=== PATIENT | female | born 1990 | race Asian ===

== ENCOUNTER 2019-05-23 21:54 | Emergency (ER) | payer OTHER ==
[2019-05-23 22:04] VITALS: BP 130/87
[2019-05-23] MEDS ORDERED: Aspirin TAB* 325 MG PO ONE (22:08)
[2019-05-23] MEDS ORDERED: Aspirin 81 mg CHEW TAB* 81 MG TAB.CHEW PO ONE (22:08)
--- NOTE | 2019-05-23 22:18 | UC ---
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 About an hour ago, she developed left chest pain under the left breast without radiation, associated with mild nausea, but no shortness of breath. She comes today because this is the longest duration of pain, but she has been having pain post exercise for the past several months. Aware of an atrial arrhythmia on physical about a year ago, without work up at that time. Over the past months, she has been monitorong EKG's with an brad, with ST elevations noted in the report, but no action was taken. - History of Current Complaint Stated Complaint: CHEST PAIN Time Seen by Provider: 05/23/19 21:55 Hx Obtained From: Patient Hx Last Menstrual Period: 2 weeks ago Onset/Duration: Sudden Onset, Lasting Minutes - about 50 to 60 Timing: Constant - some fluctuation in intensity. 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 TAD Risk Factors: Negative - Allergy/Home Medications Allergies/Adverse Reactions: Allergies Allergy/AdvReac Type Severity Reaction Status Date / Time No Known Allergies Allergy Verified 05/23/19 22:04 Home Medications: Home Medications NK [No Home Medications Reported] 05/23/19 [History Confirmed 05/23/19] PMH/Surg Hx/FS Hx/Imm Hx Previously Healthy: Yes - Surgical History Surgical History: Yes Surgery Procedure, Year, and Place: right breast cyst removal - Family History Known Family History: Positive: None - parents living and healthy Negative: Cardiac Disease, Hypertension - Social History Occupation: Student Alcohol Use: None Substance Use Type: None Smoking Status (MU): Never Smoked Tobacco Review of Systems All Other Systems Reviewed And Are Negative: Yes Constitutional: Positive: Negative Skin: Positive: Negative Eyes: Positive: Negative ENT: Positive: Negative Respiratory: Positive: Negative. Negative: Shortness Of Breath, Cough Cardiovascular: Positive: Palpitations, Chest Pain Gastrointestinal: Positive: Nausea. Negative: Vomiting Genitourinary: Positive: Negative Motor: Positive: Negative Neurovascular: Positive: Negative Musculoskeletal: Positive: Negative Neurological: Positive: Negative Psychological: Positive: Negative Is Patient Immunocompromised?: No Physical Exam Triage Information Reviewed: Yes Appearance: Well-Appearing, Pain Distress - mild Vital Signs: Initial Vital Signs Temp 97.7 F 05/23/19 21:59 Pulse 72 05/23/19 21:59 Resp 16 05/23/19 21:59 BP 130/87 05/23/19 21:59 Pulse Ox 100 05/23/19 21:59 Eye Exam: Normal ENT: Positive: Pharynx normal Dental Exam: Normal Neck: Positive: Supple, Nontender, No Lymphadenopathy Respiratory: Positive: Lungs clear, Normal breath sounds, No respiratory distress Cardiovascular: Positive: RRR, No Murmur Abdomen Description: Positive: Nontender, No Organomegaly, Soft Musculoskeletal Exam: Normal Musculoskeletal: Positive: Strength Intact Neurological Exam: Normal Neurological: Positive: Alert, Muscle Tone Normal Psychological Exam: Normal Skin Exam: Normal Diagnostics - EKG Cardiac Rate: NL Cardiac Rhythm: Sinus: Normal Ectopy: None ST Segment: Other Summary of EKG Findings: Sinus rhythm, rate 71, with delta waves and ST segment depressions of 1 -2mm in leads II, III aVF, with additional depressions in anterior leads. - Assessment/Plan Course Of Treatment: 324mg of aspirin given with decision [place] [facility] [place] work up given changes in EKG. - Differential Diagnoses - Chest Pain Differential Diagnosis/HQI/PQRI: Acute [place], ACS, Other: - arrhymthmia - Clinical Impression Provider Diagnosis: Chest pain - Physician Notifications Discussed Patient Care With: Dr. Klaus Santos Time Discussed With Above Provider: 22:15 Discharge ED - Sign-Out/Discharge Documenting (check all that apply): Patient Departure All imaging exams completed and their final reports reviewed: No Studies - Discharge Plan Condition: Stable Disposition: TRANS HIGHER LVL OF CARE FAC - Billing Disposition and Condition Condition: STABLE Disposition: Trans Higher Lvl of Care Fac
== END 2019-05-23 22:25 | disposition short-term general hospital (02) ==
LOC: UCEAST 21:54
DX: R07.89 Other chest pain (principal); R00.2 Palpitations; R11.0 Nausea
CPT/HCPCS: 93005; 99203; A9270-GY; G0463

== ENCOUNTER 2019-05-23 22:43 | Emergency (ER) | payer OTHER ==
--- NOTE | 2019-05-23 22:52 | ED ---
HPI Chest Pain - HPI Summary HPI Summary: The patient is a 29 y/o F arriving by ambulance to [facility] from [facility] with a chief complaint of sudden onset chest pain onset at 2100 tonight. She reports that three hours prior to the pain starting, she was doing interval training at the gym for approximately 30 minutes, and then she walked to the pool and swam for another 30 minutes but didnt do rigorous activity then. After returning home and eating dinner, she was relaxing and doing work on her computer when she suddenly felt a sharp, squeezing in her chest, which seemed to subside, but there was a lingering constant discomfort. Shes had episodes of similar chest pain previously, but this event lasted for much longer than usual. She then went to [facility], where the EKG showed WPW. She denies a history of this despite having a Holter monitor workup previously, but she notes that she has a history of a possible arrhythmia that she has not yet been worked up for by a electric engine mechanic because it was in [facility]. The chest pain episodes that she has experienced have become more frequent recently, and they began occurring a few years ago intermittently once a month lasting for a few minutes at time. They are often induced by stress but not by exercise. When they do occur, she looks at a small EKG machine that she has, which often show heart rates in the 140-160 BPM range. Her current pain is dull and rated 1/10 in severity. She endorses mild nausea that has resolved and fluttering palpitations while at [facility]. She denies any diaphoresis, dizziness, lightheadedness, or vomiting. LNMP : 2 weeks ago. No other PMHx. Nonsmoker, no EtOH, no substance use. Medications reviewed. Allergies noted. - History of Current Complaint Hx Obtained From: Patient Hx Last Menstrual Period: 2 weeks ago Onset/Duration: Started Hours Ago, Still Present Time of Onset: 21:00 Timing: Constant, Lasting Hours Initial Severity: Moderate Current Severity: Mild Pain Intensity: 1 Pain Scale Used: 0-10 Numeric Chest Pain Location: Diffuse Chest Pain Radiates: No Character: Other: - sharp and squeezing initially but now a discomfort Aggravating Factor(s): Other: - previous episodes induced by stress, exercised a lot today Alleviating Factor(s): Other: - subsided spontaneously but still mild Associated Signs and Symptoms: Positive: Chest Pain, Nausea - resolved, Palpitations - fluttering. Negative: Dizziness, Lightheadedness, Diaphoresis, Vomiting - Allergy/Home Medications Allergies/Adverse Reactions: Allergies Allergy/AdvReac Type Severity Reaction Status Date / Time No Known Allergies Allergy Verified 05/23/19 22:04 PMH/Surg Hx/FS Hx/Imm Hx Endocrine/Hematology History: Denies: Hx Diabetes, Hx Thyroid Disease Cardiovascular History: Denies: Hx Hypertension Respiratory History: Denies: Hx Asthma, Hx Chronic Obstructive Pulmonary Disease (COPD) GI History: Denies: Hx Ulcer Sensory History: Reports: Hx Contacts or Glasses Opthamlomology History: Reports: Hx Contacts or Glasses - Surgical History Surgical History: Yes Surgery Procedure, Year, and Place: right breast cyst removal Infectious Disease History: Denies: Hx Hepatitis, Hx Human Immunodeficiency Virus (HIV) - Family History Known Family History: Negative: Cardiac Disease, Hypertension - Social History Alcohol Use: None Hx Substance Use: No Substance Use Type: Reports: None Hx Tobacco Use: No Smoking Status (MU): Never Smoked Tobacco Review of Systems Negative: Skin Diaphoresis Positive: Palpitations - fluttering, Chest Pain - squeezing and sharp initially but mild now Positive: Nausea - resolved. Negative: Vomiting Neurological: Other - Negative: dizziness, lightheadedness All Other Systems Reviewed And Are Negative: Yes Physical Exam - Summary Physical Exam Summary: Appearance: Well-appearing, Well-nourished, lying in bed comfortably Skin: Warm, dry, no obvious rash Eyes: sclera anicteric, no conjunctival pallor ENT: mucous membranes moist, pharynx appears normal Neck: Supple, nontender Respiratory: Clear to auscultation, no signs of respiratory distress Cardiovascular: Normal S1, S2. No murmurs. Normal distal pulses in tibial and radial bilaterally. Abdomen: Soft, nontender, normal active bowel sounds present Musculoskeletal: Normal, Strength/ROM Intact Neurological: A&Ox3, awake and alert, mentation is normal, speech is fluent and appropriate Psychiatric: affect is normal, does not appear anxious or depressed Triage Information Reviewed: Yes Vital Signs Reviewed: Yes Procedures - Sedation Patient Received Moderate/Deep Sedation with Procedure: No Diagnostics - Laboratory Result Diagrams: 05/23/19 23:25 05/23/19 23:25 Lab Statement: Any lab studies that have been ordered have been reviewed, and results considered in the medical decision making process. - Radiology CXR Radiology Interpretation Completed By: ED Physician Summary of Radiographic Findings: No acute process. ED physician has reviewed and interpreted this report. Pending official read. - EKG 2246 Cardiac Rate: NL - 83 BPM EKG Rhythm: Sinus Rhythm EKG Comparison: No Significant Change - Similar to previous EKGs taken at [facility] today 05/23/19 at 2200 and 2203. Summary of EKG Findings: NSR at 83 BPM. Delta wave and slur. TX and elongated QRS consistent with WPW pattern. Nonspecific ST/T-wave changes. No STEMI. ED physician has reviewed and interpreted this EKG. Re-Evaluation - Re-Evaluation First Eval Re-Evaluation Time: 23:15 Change: Unchanged Comment: We discussed consultation with cardiology and plan for workup. Second Eval Re-Evaluation Time: 02:30 Change: Unchanged Comment: We discussed all results and discharge plan with cardiology follow-up. Chest Pain Course/Dx - Course Course Of Treatment: Patient is a 29 y/o F with a chief complaint of sharp, squeezing CP onset around 2100 that decreased in severity but has still been constantly present as discomfort since then. History of similar episodes occurring about once a month for the last few years that dont last for long without full cardiology workup other than a normal Holter monitor reading. Seen at [facility] with EKG showing WPW, which the patient does not have a previous diagnosis of. Physical exam is negative for acute abnormalities. EKG at 2246 reveals NSR at 83 BPM, delta wave and slur, TX and elongated QRS consistent with WPW pattern, nonspecific ST/T-wave changes. I spoke with Dr. Leon from cardiology, and he recommends chest pain workup with two troponins and follow- up in the office if findings are negative. Blood work reveals no acute abnormalities except for platelets of 123, BUN of 30, and glucose of 104. First troponin is 0.00. CXR is negative. Second troponin is 0.00. We discussed all results and plan for discharge. She understands and agrees with plan to follow up with cardiology. Dx of noncardiac chest pain and WPW. - Diagnoses Provider Diagnoses: Non-cardiac chest pain, WPW (Njfgw-Sxodbmkjw-Npvcl syndrome) - Provider Notifications Discussed Care Of Patient With: Link Leon - cardiology Time Discussed With Above Provider: 23:00 Instructed by Provider To: Other - I discussed the patient's case and EKG findings with Dr. They reviewed the EKG and recommend a chest pain workup with two troponins, and if everything is negative, she can follow up in the office. Discharge ED - Sign-Out/Discharge Documenting (check all that apply): Patient Departure - Patient will be discharged home. 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 Please contact our cardiology group for an appointment so they can go over this with you in more detail and offer specific treatment options. I doubt that your chest pain is related to this, and we did not find any evidence of injury to your heart tonight. It is safe to discharge you at this point. - Billing Disposition and Condition Condition: GOOD Disposition: Home - Attestation Statements Document Initiated by James: Yes Documenting Scribe: Odette Ford Provider For Whom James is Documenting (Include Credential): Dr. Klaus Frey MD Scribe Attestation: I, alexandro Reyed for Dr. Klaus Frey MD on 05/24/19 at 0557. Scribe Documentation Reviewed: Yes Provider Attestation: The documentation as recorded by the Odette le accurately reflects the service I personally performed and the decisions made by me, Dr. Klaus Frey MD Status of Scribe Document: Viewed
[2019-05-23 23:33] LABS: ABS Eosinophils 0.3 10^3/ul (0-0.6); ABS Lymphocytes 2.1 10^3/ul (1.0-4.8); ABS Monocytes 0.3 10^3/ul (0-0.8); ABS Neutrophils 3.2 10^3/ul (1.5-7.7); Eosinophil % 5.4 %; Hematocrit 43 % (35-47); Hemoglobin 14.6 g/dL (12.0-16.0); Lymphocyte % 34.6 %; Mean Corpuscular HGB Conc 34 g/dL (31-36); Mean Corpuscular Hemoglobin 31 pg (27-31); Mean Corpuscular Volume 90 fL (80-97); Mean Platelet Volume 9.5 fL (7.4-10.4); Nucleated Red Blood Cells % 0.1; Platelet Count 123 10^3/uL (150-450); Red Blood Count 4.77 10^6 /uL (3.70-4.87); Red Cell Distribution Width 14 % (10-15)
[2019-05-23 23:46] LABS: Albumin 4.8 g/dL (3.2-5.2); Anion Gap 6 mmol/L (2-11); CO2 Carbon Dioxide 29 mmol/L (22-32); Calcium 9.9 mg/dL (8.6-10.3); Chloride 103 mmol/L (101-111); Potassium 3.7 mmol/L (3.5-5.0); Sodium 138 mmol/L (135-145)
[2019-05-23 23:52] LABS: ALT 16 U/L (7-52); AST 20 U/L (13-39); Albumin/Globulin Ratio 1.5 (1-3); Alkaline Phosphatase 51 U/L (34-104); BUN/Creatinine Ratio 36.6 (8-20); Blood Urea Nitrogen 30 mg/dL (6-24); EGFR African American 99.7 (>60); EGFR Non-African American 82.4 (>60); Globulin 3.2 g/dL (2-4); Glucose 104 mg/dL (70-100)
[2019-05-23 23:58] LABS: HCG Pregnancy < 0.60 mIU/mL
[2019-05-24 02:48] VITALS: BP 112/72
== END 2019-05-24 02:48 | disposition home or self-care (01) ==
LOC: ED 22:43
DX: R07.89 Other chest pain (principal); I45.6 Pre-excitation syndrome
CPT/HCPCS: 36415; 71046; 80053; 83605; 84484; 84702; 85025; 93005; 99283